=== PATIENT | female | born 1970 | race Caucasian/White ===

== ENCOUNTER 2016-11-17 15:41 | Emergency (ER) | payer SELFPAY ==
[2016-11-17 15:51] VITALS: TEMP 98.2
[2016-11-17] MEDS ORDERED: LIDOCAINE 1% 10 ML VIAL INJ ONE (16:04)
--- NOTE | 2016-11-17 16:19 | ED.PDOC ---
History of Present Illness - General Chief Complaint: General Stated Complaint: fish hook to right toe Time Seen by Provider: 11/17/16 16:16 Source: patient Exam Limitations: no limitations - History of Present Illness Initial Comments: The patient is a 46-year-old female presenting with a fishing hook and the bottom of her right first toe present for approximately 2 hours prior to arrival. No other injuries. Timing/Duration: 1-3 hours Severity: moderate Improving Factors: nothing Worsening Factors: nothing Allergies/Adverse Reactions: Allergies NO KNOWN ALLERGY Allergy (Verified 11/17/16 15:51) Home Medications: Ambulatory Orders Sulfa/Trimeth 800/160 (Ds) Tab [Bactrim DS Tab] 1 ea PO BID #10 tab 11/17/16 Review of Systems - Review of Systems Constitutional: States: no symptoms reported EENTM: States: no symptoms reported Respiratory: States: no symptoms reported Cardiology: States: no symptoms reported Gastrointestinal/Abdominal: States: no symptoms reported Genitourinary: States: no symptoms reported Musculoskeletal: States: no symptoms reported Skin: States: see HPI Neurological: States: no symptoms reported Endocrine: States: no symptoms reported All other Systems: No Change from Baseline Past Medical History (General) - Patient Medical History Surgical History: Hysterectomy, other - Vaccination History Hx Tetanus, Diphtheria Vaccination: No Hx Influenza Vaccination: No Hx Pneumococcal Vaccination: No - Social History Hx Tobacco Use: No Hx Alcohol Use: Yes - socially Hx Substance Use: No Hx Depression: No - Activities of Daily Living Hospice Agency (if applicable):: None - Female History Patient is a Female of Child Bearing Age (10 -59 yrs old): No Patient : No Family Medical History - Family History Mother Family History: Unknown Physical Exam - Physical Exam General Appearance: Alert, Anxious, No apparent distress Eye Exam: bilateral normal Ears, Nose, Throat: normal ENT inspection, normal pharynx Neck: non-tender, full range of motion Respiratory: no respiratory distress, no accessory muscle use Cardiovascular/Chest: normal peripheral pulses, no edema Peripheral Pulses: radial,right: 2+, radial,left: 2+, dorsalis pedis,right: 2+, dorsalis pedis,left: 2+ Back Exam: normal inspection Extremity: normal range of motion, normal inspection, no pedal edema, normal capillary refill Neurologic: vp of digital marketing II-XII nml as tested, alert, normal mood/affect, oriented x 3 Skin Exam: normal color - fishhook first toe Comments: Vital Signs - 24 hr 11/17/16 15:41 Temperature 98.2 F Pulse Rate [ 80 pulse ox] Respiratory 16 Rate Blood Pressure 113/73 [Left Arm] O2 Sat by Pulse 96 Oximetry Progress - Progress Progress: 11/17/16 16:19 the patient is a 46-year-old female presenting to the emergency room with a fish hook to the first toe of the right foot. Lidocaine 1% 1 cc was used for local anesthetic. Due to the fish hook being short, the hook was backed out with needle nose pliers. The wound was cleaned with alcohol. The patient was given a tetanus shot. The patient will be placed on Bactrim twice daily for 5 days. ER warnings were given for any evidence of infection. Motrin can be used for pain. Departure - Departure Clinical Impression: Fish hook injury of right lower leg Disposition: Discharge to Home or Self Care Condition: Fair Departure Forms: ED Discharge - Pt. Copy, Patient Portal Self Enrollment Instructions: DI for Puncture Wound Diet: regular diet Activity: increase activity as tolerated Prescriptions: Sulfa/Trimeth 800/160 (Ds) Tab [Bactrim DS Tab] 1 ea PO BID #10 tab Home Medications: Ambulatory Orders Sulfa/Trimeth 800/160 (Ds) Tab [Bactrim DS Tab] 1 ea PO BID #10 tab 11/17/16 Additional Instructions: the patient is a 46-year-old female presenting to the emergency room with a fish hook to the first toe of the right foot. Lidocaine 1% 1 cc was used for local anesthetic. Due to the fish hook being short, the hook was backed out with needle nose pliers. The wound was cleaned with alcohol. The patient was given a tetanus shot. The patient will be placed on Bactrim twice daily for 5 days. ER warnings were given for any evidence of infection. Motrin can be used for pain.
[2016-11-17] MEDS ORDERED: TETANUS,DIPHTHERIA,PERTUSSIS 1 EA SYG IM ONE (16:22)
[2016-11-17] MEDS ORDERED: SULFA/TRIMETH 800/160 (DS) TAB 1 EA TAB PO ONE (16:22)
[2016-11-17 16:43] VITALS: BP 107/73; O2SAT 94
== END 2016-11-17 16:43 | disposition home or self-care (01) ==
LOC: ER 15:41
DX: S90.451A Superficial foreign body, right great toe, initial encounter (principal); X58.XXXA Exposure to other specified factors, initial encounter; Y92.9 Unspecified place or not applicable